=== PATIENT | male | born 1985 | race American Indian/Alaskan Native ===

== ENCOUNTER 2018-08-31 21:32 | Emergency (ER) | payer SELFPAY ==
--- NOTE | 2018-08-31 21:51 | EDM.PDOC ---
ED HPI GENERAL MEDICAL PROBLEM - General Chief Complaint: Skin Complaint Stated Complaint: PINKY TOE NEEDS LOOKED AT Time Seen by Provider: 08/31/18 21:47 Source of Information: Reports: Patient History Limitations: Reports: No Limitations - History of Present Illness INITIAL COMMENTS - FREE TEXT/NARRATIVE: c/o right 5th toe infectin for a few months and never had it looked at till tonight. did put cover it up with some bandage but it now smells bad. Right Foot Pain Score (Numeric/FACES): 4 - Related Data Allergies Allergy/AdvReac Type Severity Reaction Status Date / Time No Known Allergies Allergy Verified 01/12/14 20:04 Home Meds: Home Meds Acetaminophen [Tylenol] 1,000 mg PO ASDIRECTED PRN 01/12/14 [History] Past Medical History - Past Health History Medical/Surgical History: Denies Medical/Surgical History ED ROS GENERAL - Review of Systems Review Of Systems: ROS reveals no pertinent complaints other than HPI. ED EXAM, SKIN/RASH Exam: See Below Exam Limited By: No Limitations General Appearance: Alert, WD/WN, Mild Distress, Other (discomfort but busily txting) Ears: Hearing Grossly Normal Throat/Mouth: Normal Voice, No Airway Compromise Head: Atraumatic Neck: Non-Tender, Full Range of Motion Respiratory/Chest: No Respiratory Distress Cardiovascular: Regular Rate, Rhythm GI/Abdominal: Soft, Non-Tender Extremities: Other (right 5th toe and top of foot necrotic with foul odour and skin dehsicense. 4th toe with some involvement. gait limited to discomfort) Neurological: Alert, Oriented, Normal Cognition, No Motor/Sensory Deficits Psychiatric: Flat Affect Location, Skin: Lower Extremity, Right Associated features: Tenderness, Swelling, Inflammation. No: Lymphangitis Lymphatic: No Adenopathy Course - Vital Signs Last Recorded V/S: Last Vital Signs Temp 38.2 C H 08/31/18 23:04 Pulse 111 H 08/31/18 23:04 Resp 20 08/31/18 23:04 BP 119/66 08/31/18 23:04 Pulse Ox 96 08/31/18 23:04 - Orders/Labs/Meds Orders: Active Orders 24 hr Category Date Time Status CPK [CREATINE KINASE,CK] [CHEM] Stat Lab 08/31/18 23:25 Ordered CULTURE BLOOD [BC] Stat Lab 08/31/18 21:51 Received Piperacillin/Tazobactam [Zosyn] 3.375 gm Med 08/31/18 23:26 Active Sodium Chloride 0.9% [Normal Saline] 100 ml IV ONETIME Vancomycin 1 gm Med 08/31/18 23:26 Active Sodium Chloride 0.9% [Normal Saline] 250 ml IV ONETIME Medication Orders Piperacillin Sod/Tazobactam (Sod 3.375 gm/ Sodium Chloride) 100 mls @ 200 mls/ hr IV ONETIME ONE Stop: 08/31/18 23:55 Vancomycin HCl 1 gm/ Sodium (Chloride) 250 mls @ 167 mls/hr IV ONETIME ONE Stop: 09/01/18 00:55 Labs: Laboratory Tests 08/31/18 08/31/18 08/31/18 Range/Units 21:51 21:51 21:51 WBC 22.7 H (5.0-10.0) 10^3/uL RBC 3.85 L (4.6-6.2) 10^6/uL Hgb 11.8 L (14.0-18.0) g/dL Hct 32.2 L (40.0-54.0) % MCV 83.6 (80-100) fL MCH 30.6 (27.0-34.0) pg MCHC 36.6 H (33.0-35.0) g/dL Plt Count 216 (150-450) 10^3/uL Neut % (Auto) 86.8 H (42.2-75.2) % Lymph % (Auto) 3.3 L (20.5-50.1) % [place] % (Auto) 9.7 H (2-8) % Eos % (Auto) 0.0 L (1.0-3.0) % Baso % (Auto) 0.2 (0.0-1.0) % ABG pH (7.35-7.45) ABG pCO2 (35-45) mmHg ABG pO2 (70-100) mmHg ABG HCO3 (22-26) mmol/L ABG O2 Saturation (95-100) % ABG Base Excess ((-2)-(+3)) mmol/L O2 Delivery Device Sodium 111 L* (135-145) mmol/L Potassium 4.4 (3.6-5.0) mmol/L Chloride 71 L (101-111) mmol/L Carbon Dioxide 19.0 L (21.0-31.0) mmol/L Anion Gap 25.4 BUN 39 H (7-18) mg/dL Creatinine 3.3 H (0.6-1.3) mg/dL Est Cr Clr Drug Dosing 37.02 mL/min Estimated GFR (MDRD) 22 BUN/Creatinine Ratio 11.81 Glucose 1133 H* (74-105) mg/dL POC Glucose (70-105) mg/dl Lactic Acid 1.6 (0.5-2.2) mmol/L Calcium 7.6 L (8.4-10.2) mg/dl Total Bilirubin 1.9 H (0.2-1.0) mg/dL AST 16 (10-42) IU/L ALT 12 (10-60) IU/L Alkaline Phosphatase 112 (42-121) IU/L Total Protein 7.0 (6.7-8.2) g/dl Albumin 2.6 L (3.2-5.5) g/dl Globulin 4.4 Albumin/Globulin Ratio 0.59 08/31/18 08/31/18 Range/Units 23:10 23:22 WBC (5.0-10.0) 10^3/uL RBC (4.6-6.2) 10^6/uL Hgb (14.0-18.0) g/dL Hct (40.0-54.0) % MCV (80-100) fL MCH (27.0-34.0) pg MCHC (33.0-35.0) g/dL Plt Count (150-450) 10^3/uL Neut % (Auto) (42.2-75.2) % Lymph % (Auto) (20.5-50.1) % [place] % (Auto) (2-8) % Eos % (Auto) (1.0-3.0) % Baso % (Auto) (0.0-1.0) % ABG pH 7.48 H (7.35-7.45) ABG pCO2 32 L (35-45) mmHg ABG pO2 75 (70-100) mmHg ABG HCO3 23.5 (22-26) mmol/L ABG O2 Saturation 97 (95-100) % ABG Base Excess 1 ((-2)-(+3)) mmol/L O2 Delivery Device Room air Sodium (135-145) mmol/L Potassium (3.6-5.0) mmol/L Chloride (101-111) mmol/L Carbon Dioxide (21.0-31.0) mmol/L Anion Gap BUN (7-18) mg/dL Creatinine (0.6-1.3) mg/dL Est Cr Clr Drug Dosing mL/min Estimated GFR (MDRD) BUN/Creatinine Ratio Glucose (74-105) mg/dL POC Glucose > 500 H* (70-105) mg/dl Lactic Acid (0.5-2.2) mmol/L Calcium (8.4-10.2) mg/dl Total Bilirubin (0.2-1.0) mg/dL AST (10-42) IU/L ALT (10-60) IU/L Alkaline Phosphatase (42-121) IU/L Total Protein (6.7-8.2) g/dl Albumin (3.2-5.5) g/dl Globulin Albumin/Globulin Ratio Meds: Medications Generic Name Dose Route Start Last Admin Trade Name Freq PRN Reason Stop Dose Admin Piperacillin Sod/Tazobactam 100 mls @ 200 mls/hr 08/31/18 23:26 Sod 3.375 gm/ Sodium Chloride IV 08/31/18 23:55 ONETIME ONE Vancomycin HCl 1 gm/ Sodium 250 mls @ 167 mls/hr 08/31/18 23:26 Chloride IV 09/01/18 00:55 ONETIME ONE Discontinued Medications Generic Name Dose Route Start Last Admin Trade Name Freq PRN Reason Stop Dose Admin Acetaminophen 650 mg 08/31/18 22:30 08/31/18 23:00 Tylenol PO 08/31/18 22:31 650 mg NOW ONE Administration Clindamycin Phosphate 900 mg/ 106 mls @ 200 mls/hr 08/31/18 21:52 08/31/18 23 :01 Sodium Chloride IV 08/31/18 22:23 200 mls/hr ONETIME ONE Administration Sodium Chloride 1,000 mls @ 999 mls/hr 08/31/18 21:52 08/31/18 22:55 Normal Saline IV 08/31/18 22:52 999 mls/hr .BOLUS ONE Administration Insulin Human Regular 10 unit 08/31/18 22:40 08/31/18 22:57 Humulin R IV 08/31/18 22:41 10 units ONETIME ONE Administration - Re-Assessments/Exams Free Text/Narrative Re-Assessment/Exam: 08/31/18 23:[address] Goetz @ [facility] who kindly accepted pt with Dr Pagan Departure - Departure Time of Disposition: 23:35 Disposition: DC/[facility]fer to [facility] 02 Condition: Poor Clinical Impression: Necrotizing fasciitis of ankle and foot DKA (diabetic ketoacidoses) Qualifiers: Diabetes mellitus type: due to underlying condition Diabetes mellitus complication detail: without coma Qualified Code(s): E08.10 - Diabetes mellitus due to underlying condition with ketoacidosis without coma - Discharge Information Forms: Interfacility Transfer EMTALA - My Orders Last 24 Hours: My Active Orders 08/31/18 21:51 CULTURE BLOOD [BC] Stat 08/31/18 23:25 CPK [CREATINE KINASE,CK] [CHEM] Stat 08/31/18 23:26 Piperacillin/Tazobactam [Zosyn] 3.375 gm Sodium Chloride 0.9% [Normal Saline] 100 ml IV ONETIME Vancomycin 1 gm Sodium Chloride 0.9% [Normal Saline] 250 ml IV ONETIME - Assessment/Plan Last 24 Hours: My Active Orders 08/31/18 21:51 CULTURE BLOOD [BC] Stat 08/31/18 23:25 CPK [CREATINE KINASE,CK] [CHEM] Stat 08/31/18 23:26 Piperacillin/Tazobactam [Zosyn] 3.375 gm Sodium Chloride 0.9% [Normal Saline] 100 ml IV ONETIME Vancomycin 1 gm Sodium Chloride 0.9% [Normal Saline] 250 ml IV ONETIME
[2018-08-31] MEDS ORDERED: Sodium Chloride 0.9% 1,000 ML IV ONE (21:52)
[2018-08-31] MEDS ORDERED: Clindamycin Phosphate 900 MG in Sodium Chloride 0.9% 100 ML IV ONE (21:52)
[2018-08-31] MEDS ORDERED: Acetaminophen 325 MG Tab PO ONE (22:30)
[2018-08-31] MEDS ORDERED: Insulin Regular, Human 100 Units/ML 3 ML Vial IV ONE (22:40)
[2018-08-31 23:07] LABS: ANION GAP 25.4
[2018-08-31 23:14] LABS: BASE EXCESS ARTERIAL 1 mmol/L ((-2)-(+3)); BICARBONATE,ARTERIAL 23.5 mmol/L (22-26); O2 DELIVERY DEVICE ROOM AIR; O2 SATURATION ARTERIAL 97 % (95-100); PCO2 ARTERIAL 32 mmHg (35-45); PO2 ARTERIAL 75 mmHg (70-100)
[2018-08-31] MEDS ORDERED: Piperacillin/Tazobactam 3.375 GM in Sodium Chloride 0.9% 100 ML IV ONE (23:26)
== END 2018-09-01 00:08 ==
LOC: DL.ED 21:32
DX: M72.6 Necrotizing fasciitis (principal); E08.10 Diabetes mellitus due to underlying condition with ketoacidosis without coma
CPT/HCPCS: 36415; 36600; 73620; 80053; 82550; 82803; 82962; 83605; 85025; 87040; 96365; 96368; 99284; A9270; J1815; J2543; J3370; J3490; J7030; J7050

== ENCOUNTER 2021-07-17 20:49 | Emergency (ER) | payer MEDICAID ==
[2021-07-17 21:46] LABS: ANION GAP 15.3 mEq/L (7-13); CHLORIDE,CL 83 mmol/L (98-107)
[2021-07-17] MEDS ORDERED: 50% Dextrose in Water 50 ML Syringe IVPUSH PRN ×2 (21:51→21:53)
[2021-07-17] MEDS ORDERED: Glucagon,Human Recombinant 1 MG Vial IM PRN ×2 (21:51→21:53)
[2021-07-17] MEDS ORDERED: Sodium Chloride 0.9% 1,000 ML IV ONE (21:52)
[2021-07-17] MEDS ORDERED: Insulin Regular, Human 100 Units/ML 3 ML Vial IV ONE (21:53)
[2021-07-17] MEDS ORDERED: Magnesium Sulfate/Water 2 GM in Premix Bag 1 BAG IV ONE (22:12)
[2021-07-17 22:13] LABS: SODIUM,NA 116 mmol/L (136-145)
[2021-07-17] MEDS ORDERED: NS + KCl 20mEq/L 1,000 ML IV SCH (22:15)
[2021-07-17] MEDS ORDERED: Iopamidol 612 MG/ML 100 ML Bottle IVPUSH ONE (22:32)
[2021-07-17] MEDS ORDERED: cefTRIAXone 1 GM in Sodium Chloride 0.9% 50 ML IV ONE (23:11)
[2021-07-18] MEDS ORDERED: Acetaminophen 325 MG Tab PO ONE (00:36)
[2021-07-18] MEDS ORDERED: Sodium Chloride 0.9% 1,000 ML IV ONE (00:50)
[2021-07-18 01:15] LABS: ANION GAP 13.6 mEq/L (7-13); CHLORIDE,CL 89 mmol/L (98-107); SODIUM,NA 124 mmol/L (136-145)
[2021-07-18] MEDS ORDERED: DAPTOmycin 400 MG in Sodium Chloride 0.9% 50 ML IV ONE (01:26)
[2021-07-18] MEDS ORDERED: Piperacillin/Tazobactam 3.375 GM in Sodium Chloride 0.9% 100 ML IV ONE (01:26)
[2021-07-18 22:06] LABS: O2 DELIVERY DEVICE ROOM AIR
[2021-07-18 22:07] LABS: O2 SATURATION ARTERIAL 96 % (95-100); PCO2 ARTERIAL 35 mmHg (35-45); PO2 ARTERIAL 85 mmHg (70-100)
[2021-07-18 22:08] LABS: BASE EXCESS ARTERIAL -5 mmol/L ((-2)-(+3)); BICARBONATE,ARTERIAL 20.1 mmol/L (22-26)
== END 2021-07-18 02:43 ==
LOC: DL.ED 20:49
DX: A41.9 Sepsis, unspecified organism (principal); L03.116 Cellulitis of left lower limb; E08.10 Diabetes mellitus due to underlying condition with ketoacidosis without coma; Z20.822 Contact with and (suspected) exposure to COVID-19
CPT/HCPCS: 36415; 36600; 73700; 80048; 80053; 80307; 82009; 82803; 82947; 83605; 83735; 85025; 85651; 86140; 87040; 87070; 87077; 87186; 87635; 96365; 96366; 96367; 96368; 99285; A9270; J0696; J0878; J1815; J2543; J3475; J3480; J7030; U0002

== ENCOUNTER 2022-11-07 09:18 | Emergency (ER) | payer MEDICAID ==
[2022-11-07 09:13] LABS: BASOPHILS PERCENT AUTO 0.1 % (0.0-1.0); EOSINOPHILS PERCENT AUTO 0.1 % (1.0-3.0); HEMATOCRIT 40.5 % (40.0-54.0); HEMOGLOBIN 14.5 g/dL (14.0-18.0); LYMPHOCYTES PERCENT AUTO 8.4 % (20.5-50.1); MEAN CORPUSCULAR HEMOGLOBIN 29.4 pg (27.0-34.0); MEAN CORPUSCULAR HGB CONC 35.8 g/dL (33.0-35.0); MEAN CORPUSCULAR VOLUME 82.2 fL (80-100); MONOCYTES PERCENT AUTO 3.2 % (2-8); NEUTROPHILS PERCENT AUTO 88.2 % (42.2-75.2); PLATELET COUNT,PLT 213 10^3/uL (150-450); RED BLOOD CELL COUNT 4.93 10^6/uL (4.6-6.2); WHITE BLOOD CELL COUNT,WBC 8.1 10^3/uL (5.0-10.0)
[~2022-11-07 09:18] MED LIST: Iopamidol 612 MG/ML 100 ML Bottle IARTIC ONE; Sodium Chloride 0.9% 1,000 ML IV ONE; Sodium Chloride 0.9% 10 ML Syringe FLUSH PRN
[2022-11-07 09:26] LABS: KETONES,BLOOD NEGATIVE
[2022-11-07 09:36] LABS: A/G RATIO 0.8; ALANINE AMINOTRANSFERASE,ALT 19 U/L (16-63); ALBUMIN 3.4 g/dL (3.4-5.0); ALKALINE PHOSPHATASE 172 U/L (46-116); ANION GAP 13.5 mEq/L (7-13); ASPARTATE AMNIOTRANSFERASE,AST 12 U/L (15-37); BILIRUBIN TOTAL 0.5 mg/dL (0.2-1.0); BLOOD UREA NITROGEN,BUN 22 mg/dL (7-18); CALCIUM 8.9 mg/dL (8.5-10.1); CARBON DIOXIDE,CO2 26 mmol/L (21-32); CHLORIDE,CL 100 mmol/L (98-107); LIPASE 104 U/L (73-393); POTASSIUM,K 4.5 mmol/L (3.5-5.1); PROTEIN TOTAL,TP 7.6 g/dL (6.4-8.2); SODIUM,NA 135 mmol/L (136-145)
[2022-11-07 09:38] LABS: GLUCOSE RANDOM 501 mg/dL (70-99)
[2022-11-07 09:39] LABS: ESTIMATED GFR 99 mL/min (>=60)
[2022-11-07] MEDS ORDERED: Glucagon,Human Recombinant 1 MG Vial IM PRN (09:39)
[2022-11-07] MEDS ORDERED: Insulin Regular, Human 100 Units/ML 3 ML Vial IV ONE (09:39)
[2022-11-07] MEDS ORDERED: 50% Dextrose in Water 50 ML Syringe IVPUSH PRN (09:39)
[2022-11-07] MEDS ORDERED: Ketorolac 30 MG/ML SDV IVPUSH ONE (10:44)
[2022-11-07] MEDS ORDERED: Famotidine 20 MG/2 ML SDV IVPUSH ONE (10:44)
[2022-11-07 10:54] LABS: APPEARANCE,URINE CLEAR (CLEAR); BILIRUBIN,URINE NEGATIVE (NEGATIVE); COLOR,URINE YELLOW (YELLOW); GLUCOSE,URINE 500 (NEGATIVE); KETONES,URINE TRACE (NEGATIVE); LEUKOCYTE ESTERASE,URINE NEGATIVE (NEGATIVE); NITRITE,URINE NEGATIVE (NEGATIVE); OCCULT BLOOD,URINE TRACE-INTACT (NEGATIVE); PROTEIN,URINE 100 (NEGATIVE); UROBILINOGEN,URINE 0.2 mg/dL (0.2-1.0)
[2022-11-07 11:02] LABS: ALANINE AMINOTRANSFERASE,ALT 13 U/L (16-63); ALBUMIN 2.7 g/dL (3.4-5.0); ALKALINE PHOSPHATASE 146 U/L (46-116); ANION GAP 13.7 mEq/L (7-13); ASPARTATE AMNIOTRANSFERASE,AST 13 U/L (15-37); BILIRUBIN TOTAL 0.3 mg/dL (0.2-1.0); BLOOD UREA NITROGEN,BUN 20 mg/dL (7-18); BUN/CREATININE RATIO 25.3 (No establ ref range); CALCIUM 8.1 mg/dL (8.5-10.1); CARBON DIOXIDE,CO2 21 mmol/L (21-32); CHLORIDE,CL 104 mmol/L (98-107); CREATININE 0.79 mg/dL (0.70-1.30); GLUCOSE RANDOM 391 mg/dL (70-99); POTASSIUM,K 3.7 mmol/L (3.5-5.1); PROTEIN TOTAL,TP 6.6 g/dL (6.4-8.2); SODIUM,NA 135 mmol/L (136-145)
[2022-11-07 11:07] LABS: A/G RATIO 0.69; ESTIMATED GFR 117 mL/min (>=60)
[2022-11-07 11:09] LABS: BACTERIA,URINE FEW /HPF (0-FEW/HPF); EPITHELIAL CELLS,URINE RARE /HPF (NOT SEEN); WBC,URINE 0-5 /HPF (0-5/HPF)
[2022-11-07] MEDS ORDERED: Sodium Chloride 0.9% 1,000 ML IV ONE (11:17)
== END 2022-11-07 12:23 | disposition home or self-care (01) ==
LOC: DL.ED 09:18
DX: K80.20 Calculus of gallbladder without cholecystitis without obstruction (principal); E11.65 Type 2 diabetes mellitus with hyperglycemia
CPT/HCPCS: 36415; 74177; 80053; 81001; 82009; 82947; 83690; 85025; 96361; 96374; 96375; 99284; 99285-25; J1815-GY; J1885; J3490; J7030; Q9967

== ENCOUNTER 2023-09-16 22:02 | Emergency (ER) | payer MEDICAID ==
[2023-09-16] MEDS: Sodium Chloride 0.9% 1,000 ML IV SCH (22:42)
[2023-09-16] MEDS: Ondansetron 4 MG/2 ML SDV IVPUSH PRN (22:42)
[2023-09-16] MEDS: Sodium Chloride 0.9% 10 ML Syringe FLUSH PRN (22:43)
[2023-09-16 22:44] LABS: BASOPHILS PERCENT AUTO 0.2 % (0.0-1.0); EOSINOPHILS PERCENT AUTO 0.4 % (1.0-3.0); HEMATOCRIT 41.4 % (40.0-54.0); HEMOGLOBIN 14.4 g/dL (14.0-18.0); MEAN CORPUSCULAR HEMOGLOBIN 29.4 pg (27.0-34.0); MEAN CORPUSCULAR HGB CONC 34.8 g/dL (33.0-35.0); MEAN CORPUSCULAR VOLUME 84.7 fL (80-100); MONOCYTES PERCENT AUTO 9.6 % (2-8); NEUTROPHILS PERCENT AUTO 83.8 % (42.2-75.2); PLATELET COUNT,PLT 213 10^3/uL (150-450); RED BLOOD CELL COUNT 4.89 10^6/uL (4.6-6.2); WHITE BLOOD CELL COUNT,WBC 10.1 10^3/uL (5.0-10.0)
[2023-09-16 23:16] LABS: ALANINE AMINOTRANSFERASE,ALT 216 U/L (16-63); ALBUMIN 2.5 g/dL (3.4-5.0); ANION GAP 13.7 mEq/L (7-13); ASPARTATE AMNIOTRANSFERASE,AST 167 U/L (15-37); BILIRUBIN TOTAL 2.6 mg/dL (0.2-1.0); BLOOD UREA NITROGEN,BUN 16 mg/dL (7-18); BUN/CREATININE RATIO 13.4 (No establ ref range); CALCIUM 9.4 mg/dL (8.5-10.1); CARBON DIOXIDE,CO2 24 mmol/L (21-32); CHLORIDE,CL 94 mmol/L (98-107); CREATININE 1.19 mg/dL (0.70-1.30); LIPASE 33 U/L (16-77); MAGNESIUM 1.7 mg/dL (1.8-2.4); POTASSIUM,K 3.7 mmol/L (3.5-5.1); PROTEIN TOTAL,TP 7.1 g/dL (6.4-8.2); SODIUM,NA 128 mmol/L (136-145)
[2023-09-16] MEDS: Prochlorperazine 25 MG Supp RECTAL ONE (23:17)
[2023-09-16 23:21] LABS: A/G RATIO 0.54; ESTIMATED GFR 80 mL/min (>=60); ETHANOL BLOOD MEDICAL < 3 mg/dL (0); GLUCOSE RANDOM 530 mg/dL (70-99)
[2023-09-16 23:25] LABS: INR 0.8 (0.9-1.2); PROTHROMBIN TIME 8.6 SEC (9.0-12.0); PTT,PARTIAL THROMBOPLSTIN TIME 23.9 SEC (22.0-34.0)
[2023-09-16 23:38] LABS: ALKALINE PHOSPHATASE 1332 U/L (46-116)
[2023-09-16 23:53] LABS: APPEARANCE,URINE SLIGHTLY CLOUDY (CLEAR); BILIRUBIN,URINE NEGATIVE (NEGATIVE); COLOR,URINE DARK YELLOW (YELLOW); GLUCOSE,URINE 500 (NEGATIVE); KETONES,URINE TRACE (NEGATIVE); LEUKOCYTE ESTERASE,URINE NEGATIVE (NEGATIVE); NITRITE,URINE NEGATIVE (NEGATIVE); OCCULT BLOOD,URINE TRACE-INTACT (NEGATIVE); PROTEIN,URINE >=300 (NEGATIVE)
[2023-09-16 23:55] LABS: AMPHETAMINES,URINE NEGATIVE (NEGATIVE); BARBITURATES,URINE NEGATIVE (NEGATIVE); BENZODIAZEPINE,URINE NEGATIVE (NEGATIVE); MDMA (ECSTASY), URINE NEGATIVE (NEGATIVE); METHADONE,URINE NEGATIVE (NEGATIVE); METHAMPHETAMINES,URINE POSITIVE (NEGATIVE); OPIATES,URINE NEGATIVE (NEGATIVE); OXYCODONE,URINE NEGATIVE (NEGATIVE); PHENCYCLIDINE,URINE NEGATIVE (NEGATIVE); TCA,URINE NEGATIVE (NEGATIVE)
[2023-09-17 00:02] LABS: WBC,URINE 0-5 /HPF (0-5/HPF)
[2023-09-17 00:03] LABS: AMORPHOUS SEDIMENT,URINE FEW /HPF (NOT SEEN); BACTERIA,URINE FEW /HPF (0-FEW/HPF); EPITHELIAL CELLS,URINE RARE /HPF (NOT SEEN); MUCUS,URINE FEW /LPF (NOT SEEN)
[2023-09-17] MEDS ORDERED: Iopamidol 755 Mg/ML 100 ML Bottle IVPUSH ONE (00:10)
[2023-09-17] MEDS: Iopamidol 612 MG/ML 100 ML Bottle IVPUSH ONE (00:45)
[2023-09-17] MEDS: fentaNYL 100 MCG/2 ML SDV IVPUSH ONE (00:46)
[2023-09-17] MEDS: metroNIDAZOLE/Normal Saline 500 MG in Premix Bag 1 BAG IV ONE (02:23)
[2023-09-17] MEDS: cefTRIAXone 2 GM Vial IVPUSH ONE (02:23)
[2023-09-17] MEDS: Insulin Lispro 100 Units/ML 3 ML Vial SUBCUT ONE (02:47)
[2023-09-17] MEDS: HYDROmorphone 1 MG/ML Syringe IVPUSH ONE (02:59)
[2023-09-17] MEDS: Sodium Chloride 0.9% 1,000 ML IV SCH (03:12)
== END 2023-09-17 03:21 ==
LOC: DL.ED 22:02
DX: K80.50 Calculus of bile duct without cholangitis or cholecystitis without obstruction (principal); E11.65 Type 2 diabetes mellitus with hyperglycemia; E80.6 Other disorders of bilirubin metabolism; R94.5 Abnormal results of liver function studies; Z90.49 Acquired absence of other specified parts of digestive tract; Z79.4 Long term (current) use of insulin
CPT/HCPCS: 36415; 74177; 80053; 80305; 80307; 81001; 82140; 82947; 83690; 83735; 85025; 85610; 85730; 93005; 96361; 96365; 96375; 99285; A9270; J0696; J1170; J1815; J1836; J2405; J3010; J7030; J7040; Q9967; 93010; 99284; J3490